=== PATIENT | female | born 1980 | race Caucasian/White ===

== ENCOUNTER 2018-09-26 09:49 | Emergency (ER) | payer BC ==
[2018-09-26 10:09] VITALS: BP 138/88
--- NOTE | 2018-09-26 10:17 | UC ---
UC General HPI - HPI Summary HPI Summary: uti x 1 day, hx same. Low back ache, bladder pressure, urinary discomfort. no fever, abdominal pain or vaginal s/s's. - History of Current Complaint Chief Complaint: UCGU Stated Complaint: URINARY Time Seen by Provider: 09/26/18 10:11 Hx Obtained From: Patient Onset/Duration: Gradual Onset Timing: Constant Pain Intensity: 3 Associated Signs & Symptoms: Negative: Abdominal Pain, Fever - Allergy/Home Medications Allergies/Adverse Reactions: Allergies Allergy/AdvReac Type Severity Reaction Status Date / Time aloe AdvReac Dry Skin Verified 09/26/18 10:06 milk AdvReac GI Upset Verified 09/26/18 10:06 PMH/Surg Hx/FS Hx/Imm Hx - Additional Past Medical History Additional PMH: uti, pyelonephritis - Surgical History Surgical History: Yes Surgery Procedure, Year, and Place: Tubal Ligation and Uterine Ablation, [facility], [place] - Social History Lives: With Family Alcohol Use: Occasionally Substance Use Type: None Smoking Status (MU): Former Smoker Length of Time of Smoking/Using Tobacco: 1 PPD x 10-12 Years When Did the Patient Quit Smoking/Using Tobacco: ~2012 Review of Systems All Other Systems Reviewed And Are Negative: Yes Constitutional: Negative: Fever Skin: Positive: Negative Eyes: Positive: Negative ENT: Positive: Negative Respiratory: Positive: Negative Cardiovascular: Positive: Negative Gastrointestinal: Negative: Abdominal Pain, Vomiting, Diarrhea, Nausea Genitourinary: Positive: Dysuria, Hematuria, Frequency, Urgency Motor: Positive: Negative Neurovascular: Positive: Negative Neurological: Positive: Negative Psychological: Positive: Negative Physical Exam Triage Information Reviewed: Yes Appearance: Well-Appearing Vital Signs: Initial Vital Signs Temp 97.4 F 09/26/18 10:03 Pulse 81 09/26/18 10:03 Resp 15 09/26/18 10:03 BP 138/88 09/26/18 10:03 Pulse Ox 98 09/26/18 10:03 Vital Signs Reviewed: Yes Eyes: Positive: Conjunctiva Clear ENT: Positive: Normal ENT inspection Neck: Positive: Supple Respiratory: Positive: Lungs clear Cardiovascular: Positive: RRR Abdomen Description: Positive: Nontender, No Organomegaly, Soft. Negative: CVA Tenderness (R), CVA Tenderness (L), Distended, Guarding Bowel Sounds: Positive: Present Musculoskeletal: Positive: ROM Intact Neurological: Positive: Alert Psychological: Positive: Age Appropriate Behavior Skin Exam: Normal Diagnostics - Laboratory Diagnostic Studies Completed/Ordered: u/a=blood and leukocytes with culture pending Course/Dx - Differential Dx - Multi-Symptom Differential Diagnoses: Other - no concern for pelvic infection, acute abdomen or pyelonephritis - Diagnoses Provider Diagnosis: UTI (urinary tract infection) Discharge - Sign-Out/Discharge Documenting (check all that apply): Patient Departure All imaging exams completed and their final reports reviewed: No Studies - Discharge Plan Condition: Stable Disposition: HOME Prescriptions: Cephalexin CAP* [Keflex CAP*] 500 mg PO BID 7 Days #14 cap Patient Education Materials: Urinary Tract Infection in Women (ED) Referrals: Kinjal Middleton MD [Primary Care Provider] - 7 Days - Billing Disposition and Condition Condition: STABLE Disposition: Home
== END 2018-09-26 10:22 | disposition home or self-care (01) ==
LOC: UCCORT 09:49
DX: N39.0 Urinary tract infection, site not specified (principal); Z91.09 Other allergy status, other than to drugs and biological substances; Z91.011 Allergy to milk products; Z87.891 Personal history of nicotine dependence
CPT/HCPCS: 81003; 87077; 87086; 87186; 99202; G0463